=== PATIENT | female | born 1960 | race Two or more races ===

== ENCOUNTER 2021-11-10 18:00 | Emergency (ER) | payer OTHER ==
[~2021-11-10] VITALS: Ht 160 cm; Wt 93.0 kg
[2021-11-10 18:10] VITALS: BP 138/93
[2021-11-10] MEDS ORDERED: acetaminophen 325mg tablet PO ONE (19:05)
== END 2021-11-10 19:58 | disposition left against medical advice (07) ==
LOC: ER 18:01
DX: R50.9 Fever, unspecified (principal); Z53.21 Procedure and treatment not carried out due to patient leaving prior to being seen by health care provider